=== PATIENT | male | born 1960 | race Caucasian/White ===

== ENCOUNTER 2018-01-13 05:52 | Day surgery (SDC) | payer OTHER ==
[~2018-01-13 05:52] MED LIST: Buffered Lidocaine 0.9% SYRIN* 5 ML/SYR SYRINGE INTRADERM ONE
[2018-01-13] MEDS ORDERED: ceFAZolin 2 GM PREMIX (*) 2 GM/50 ML BAG IVPB ONE (06:07)
[2018-01-13] MEDS ORDERED: Lidocaine 1% INJ* 10 MG/ML 30 ML SDV ONE (07:13)
[2018-01-13] MEDS ORDERED: Midazolam* 1 MG/ML 5 ML VIAL (5 MG) ONE (07:16)
[2018-01-13] MEDS ORDERED: fentaNYL* 50 MCG/ML 2 ML VIAL (100 MCG VIAL) ONE (07:37)
[2018-01-13] MEDS ORDERED: Midazolam* 1 MG/ML 2 ML VIAL (2 MG) ONE (07:49)
[2018-01-13] MEDS ORDERED: Ondansetron INJ* 2 MG/ML VIAL IV PRN (08:15)
[2018-01-13] MEDS ORDERED: oxyCODONE/Acetamin 5/325 MG* TAB PO PRN (08:15)
[2018-01-13] MEDS ORDERED: fentaNYL* 50 MCG/ML 2 ML VIAL (100 MCG VIAL) IV PRN (08:15)
[2018-01-13] MEDS ORDERED: HYDROcodone/ACETAMIN 5-325 MG* 1 TAB PO PRN (08:15)
[2018-01-13] MEDS ORDERED: Naloxone* 0.4 MG/ML 1 ML VIAL IV PRN (08:15)
[2018-01-13 08:40] VITALS: BP 111/71
--- NOTE | 2018-01-13 09:35 | RAD ---
HISTORY: port placed COMPARISONS: May 11, 2016 VIEWS: 1: frontal portable view of the chest at 8:18 AM FINDINGS: LINES AND TUBES: A right-sided chest port is noted from subclavian approach with the tip overlying the superior vena cava. CARDIOMEDIASTINAL SILHOUETTE: The cardiomediastinal silhouette is normal for portable technique. PLEURA: The costophrenic angles are sharp. No pleural abnormalities are noted. There is no appreciable pneumothorax. LUNG PARENCHYMA: The lungs are clear. ABDOMEN: The upper abdomen is clear. There is no subphrenic gas. BONES AND SOFT TISSUES: No bone or soft tissue abnormalities are noted. IMPRESSION: LINES AND TUBES ABOVE. NO ACTIVE CARDIOPULMONARY DISEASE.
--- NOTE | 2018-01-13 11:16 | OP ---
CC: Dr. Shereen Howard * DATE OF OPERATION: 01/13/18 - [facility] DATE OF : 60 SURGEON: Angelito Michaels MD HOME SALES SERVICE PROFESSIONAL: None. ANESTHESIOLOGIST: Jack Case MD ANESTHESIA: LMAC anesthesia. PRE-OP DIAGNOSIS: Carcinoma of the brain. POST-OP DIAGNOSIS: Carcinoma of the brain. OPERATIVE PROCEDURE: Placement of right subclavian 8-Occitan PowerPort. DESCRIPTION OF PROCEDURE: The patient was supine on the operating room table. After adequate intravenous sedation, compression stockings, Parisa Hugger warmer, and intravenous antibiotics, the right neck and chest regions were prepped with antiseptic and draped in a sterile fashion. Local infiltrative anesthesia was administered and approximately 3-cm subclavian incision was created. Inferior pocket was created. Subclavian venipuncture carried out and guidewire passed under fluoroscopic guidance. Catheter passed through the peel-away introducer, measured, and cut at 23 cm, attached to the port which was sutured into the pocket with 2-0 Prolene. The pocket was closed with 3-0 and 5-0 Vicryl followed by Steri-Strips. The port was accessed. There was good blood return, and was flushed with saline solution and heparinized solution, and a Tegaderm dressing was placed. He was brought to Recovery in good condition. No complications. No drains. No pathologic specimens. Sponge and instrument counts correct. Estimated blood loss less than 10 mL. [id number]/CPS #: [id number] MTDD
--- NOTE | 2018-01-14 10:58 | RAD ---
INDICATION: PowerPort placement COMPARISON: None FINDINGS: 1.7 seconds of fluoroscopy were provided for the surgical department. Fluoroscopic spot imaging of the chest were obtained for operative control and show a normal course of the central venous catheter. A follow-up chest x-ray is pending . CPT II Codes: G9500 (fluoro time doc)
== END 2018-01-13 09:00 | disposition home or self-care (01) ==
LOC: OR 05:52
PROVIDERS: ATTEND Surgery
DX: C71.1 Malignant neoplasm of frontal lobe (principal); Z87.891 Personal history of nicotine dependence
CPT/HCPCS: 71045; 76000; C1788; J0690; J1642; J2250; J3010

== ENCOUNTER 2018-12-21 09:36 | Inpatient (IN) | payer OTHER ==
[2018-12-21] MEDS ORDERED: Dexamethasone IV* 4 MG/ML 5 ML VIAL (20 MG) IVPB ONE (10:14)
--- NOTE | 2018-12-21 10:23 | ED ---
Altered Mental Status - HPI Summary HPI Summary: Pt is a 58 y/o M presenting to the ED brought in by EMS for altered mental status. LEVEL 5 CAVEAT: Pt's full hx and physical are unobtainable d/t current altered mental status. Per EMS, the pt has hx of frontal lobe CA, and his family is unable to take care of him. He has slurred speech, R-sided weakness and facial droop, but they think his last known well was 2 weeks ago. They note that he is unable to make his needs known, and that he lives alone. He presents with Adrianna, his sister, who informed us that he had an MRI scheduled for today at 0945, lab work scheduled for today, and chemo tomorrow. She thinks he should be staying in the hospital for further treatment, d/t his hx. She reports that 1 week ago he had very poor gait, and his speech is currently jumbled and slurred. Vital signs while in room: HR 106 bpm, BP 148/109, SaO2 98% on room air with 18 respirations per minute. Home Medications Medication Instructions Recorded Confirmed Type dexAMETHasone [Dexamethasone] 2 mg PO BID 01/10/18 12/21/18 History Amlodipine Besylate [Norvasc] 10 mg PO DAILY 09/24/18 12/21/18 History Omeprazole 20 mg PO DAILY 09/24/18 12/21/18 History Hydrochlorothiazide TAB* 25 mg PO DAILY 12/21/18 12/21/18 History [Hydrodiuril TAB*] Potassium Chlor TAB* [Klor Con ER 40 meq PO DAILY 12/21/18 12/21/18 History TAB*] Rivaroxaban TAB(*) [Xarelto 20 mg] 20 mg PO DAILY 12/21/18 12/21/18 History - History Of Current Complaint Chief Complaint: EDAltMentalStatus Stated Complaint: POSS STROKE PER EMS Hx Obtained From: Family/[employer] - Adrianna, his sister Hx From Patient Unobtainable Due To: Altered Mental Status Last Known Well Date: 2 weeks ago Onset/Duration: Still Present, Gradually Timing: Constant, Lasting Weeks Severity Initially: Moderate Severity Currently: Severe Character: Confusion, Lethargy Aggravating Factor(s): Nothing Alleviating Factor(s): Nothing Associated Signs And Symptoms: Positive: Negative - Allergies/Home Medications Allergies/Adverse Reactions: Allergies Allergy/AdvReac Type Severity Reaction Status Date / Time No Known Allergies Allergy Verified 12/19/18 13:15 Home Medications: Home Medications Hydrochlorothiazide TAB* [Hydrodiuril TAB*] 25 mg PO DAILY 12/21/18 [History Confirmed 12/21/18] Potassium Chlor TAB* [Klor Con ER TAB*] 40 meq PO DAILY 12/21/18 [History Confirmed 12/21/18] Rivaroxaban TAB(*) [Xarelto 20 mg] 20 mg PO DAILY 12/21/18 [History Confirmed ] PMH/Surg Hx/FS Hx/Imm Hx Previously Healthy: No Endocrine/Hematology History: Denies: Hx Diabetes Cardiovascular History: Denies: Hx Hypertension, Hx Pacemaker/ICD Respiratory History: Denies: Hx Asthma History: Denies: Hx Dialysis, Hx Renal Disease Sensory History: Reports: Hx Contacts or Glasses Denies: Hx Hearing Aid Opthamlomology History: Reports: Hx Contacts or Glasses Neurological History: Reports: Other Neuro Impairments/Disorders - glioblastoma Psychiatric History: Denies: Hx Panic Disorder - Cancer History Cancer Type, Location and Year: GLIOBLASTOMA Hx Chemotherapy: Yes - and radiation Hx Radiation Therapy: Yes - Surgical History Surgical History: Yes Surgery Procedure, Year, and Place: 1996 WRIST LEFT- HAD TO "REPAIR VEIN";. -L FONTAL LOBECTOMY AT [place];. POWER PORT. GAMMA KNIFE, [place] Hx Anesthesia Reactions: No Infectious Disease History: No Infectious Disease History: Denies: Traveled Outside the [place] in Last 30 Days - Family History Known Family History: Positive: Other - Father - Stage IV Brain Tumor; Grandfather - Colon Cancer. - Social History Lives: Alone Alcohol Use: None Hx Substance Use: No Substance Use Type: Reports: None Hx Tobacco Use: Yes Smoking Status (MU): Former Smoker Amount Used/How Often: smoked 15-20 years 2ppd Review of Systems - ROS Summary Review of Systems Summary: LEVEL 5 CAVEAT: Pt's full hx and physical are unobtainable d/t current altered mental status. Constitutional: Negative Eyes: Negative Cardiovascular: Negative Respiratory: Negative Gastrointestinal: Negative Positive: Decreased ROM Positive: Weakness, Slurred Speech All Other Systems Reviewed And Are Negative: No Physical Exam - Summary Physical Exam Summary: Appearance: Ill-appearing, no pain distress, well-nourished Skin: Warm, color reflects adequate perfusion, dry Head: Normal Head/Face inspection, atraumatic Eyes: Conjunctiva clear, nonicteric ENT: Normal inspection, pupils midpoint, EOMI Neck: Supple, no nodes, no JVD Respiratory: Lungs clear, normal breath sounds, no respiratory distress Cardio: RRR, No murmur, pulses normal, brisk capillary refill Abdomen: Soft, nontender, nondistended, no masses Bowel sounds: Present Musculoskeletal: Strength Intact/ROM intact, no calf tenderness, no edema. Psychological: Interactive, good eye contact Neuro: Gibberish speech with some understandable phrases, alert, follows most commands, muscle tone normal, no focal deficit, generalized weakness Triage Information Reviewed: Yes Vital Signs On Initial Exam: Initial Vitals Temp Pulse Resp BP Pulse Ox 98.3 F 112 16 148/109 98 12/21/18 09:43 12/21/18 09:43 12/21/18 09:43 12/21/18 09:43 12/21/18 09:43 Vital Signs Reviewed: Yes Completion Of Physical Exam Limited Due To: Altered Mental Status Diagnostics - Vital Signs Vital Signs Temp Pulse Resp BP Pulse Ox 12/21/18 10:03 94 12/21/18 09:53 17 148/109 12/21/18 09:45 14 12/21/18 09:43 98.3 F 112 16 148/109 98 - Laboratory Result Diagrams: 12/21/18 10:12 12/21/18 10:12 Lab Statement: Any lab studies that have been ordered have been reviewed, and results considered in the medical decision making process. - Radiology CXR Radiology Interpretation Completed By: Radiologist Summary of Radiographic Findings: Low lung volumes. No active cardiopulmonary disease. ED provider has reviewed this report. Brain MRI Radiology Interpretation Completed By: Radiologist Summary of Radiographic Findings: 1. THERE HAS BEEN PROGRESSION OF DISEASE WITH A NEW ENHANCING MASS OF THE LEFT MEDIAL TEMPORAL LOBE WITH PROGRESSION OF ENHANCING MASSES OF THE LEFT ANTERIOR TEMPORAL LOBE. THERE IS ASSOCIATED VASOGENIC EDEMA OF THE LEFT CEREBRAL HEMISPHERE EXTENDING INTO THE CORPUS CALLOSUM AND RIGHT FRONTAL LOBE. THERE IS SULCAL EFFACEMENT OF THE LEFT PARIETAL LOBE. 2. THERE ARE SMALL HEMORRHAGIC COMPONENTS TO THE ENHANCING MASSES CONSISTENT WITH THE HISTORY OF GLIOBLASTOMA. ED physician has reviewed this report. - CT Brain CT CT Interpretation Completed By: Radiologist Summary of CT Findings: THERE IS HYPOATTENUATION OF THE LEFT CEREBRAL HEMISPHERIC WHITE MATTER. WHEN COMPARED TO PREVIOUS MRI, THIS LIKELY REPRESENTS A COMBINATION OF TREATMENT EFFECT AND VASOGENIC EDEMA. THERE HAS BEEN NO SIGNIFICANT CHANGE ACCOUNTING FOR DIFFERENCES IN TECHNIQUE. THERE IS NO SHIFT. ED physician has reviewed this report. - EKG 1024 Cardiac Rate: Tachycardia - 103bpm EKG Rhythm: Sinus Tachycardia ST Segment: Non-Specific Ectopy: None Summary of EKG Findings: An EKG at 1024 shows sinus tachycardia at 103bpm nml AV /IV CT, nml QTc, and L axis deviation (-23) and LVH. No acute changes. No prior to compare. ED MD has reviewed and interpreted this EKG. Re-Evaluation - Re-Evaluation First Eval Re-Evaluation Time: 12:15 Change: Unchanged Comment: Sister and pt advised of progressive disease on MRI, and that Dr. Howard advises admission. They are in agreement. Pt is a DNR. Sister, Adrianna is HCP. Altered Mental Statu Course/Dx - Course Course Of Treatment: Pt is a 58 y/o M presenting to the ED brought in by EMS for altered mental status. Per EMS, the pt has hx of frontal lobe CA, and his family is unable to take care of him. He has slurred speech, R-sided weakness and facial droop, but they think his last known well was 2 weeks ago. They note that he is unable to make his needs known, and that he lives alone. He presents with Adrianna, his sister, who informed us that he had an MRI scheduled for today at 0945, lab work scheduled for today, and chemo tomorrow. She thinks he should be staying in the hospital for further treatment, d/t his hx. She reports that 1 week ago he had very poor gait, and his speech is currently jumbled and slurred. Vital signs while in room: HR 106 bpm, BP 148/109, SaO2 98 % on room air with 18 respirations per minute. On exam, the pt has gibberish speaking with some understandable phrases, but the rest of his exam is normal. [address] Honeycutt to inform him of the patients condition. [address] Howard who recommended that the patient be given 10mg of Dexamethasone and to wait for disposition until the MRI is done. CXR shows: Low lung volumes. No active cardiopulmonary disease. ED provider has reviewed this report. Brain CT shows: THERE IS HYPOATTENUATION OF THE LEFT CEREBRAL HEMISPHERIC WHITE MATTER. WHEN COMPARED TO PREVIOUS MRI, THIS LIKELY REPRESENTS A COMBINATION OF TREATMENT EFFECT AND VASOGENIC EDEMA. THERE HAS BEEN NO SIGNIFICANT CHANGE ACCOUNTING FOR DIFFERENCES IN TECHNIQUE. THERE IS NO SHIFT. An EKG at 1024 shows sinus tachycardia at 103bpm nml AV/IV CT, nml QTc, and L axis deviation (-23) and LVH. No acute changes. No prior to compare. ED MD has reviewed and interpreted this EKG. Brain MRI shows: 1. THERE HAS BEEN PROGRESSION OF DISEASE WITH A NEW ENHANCING MASS OF THE LEFT MEDIAL TEMPORAL LOBE WITH PROGRESSION OF ENHANCING MASSES OF THE LEFT ANTERIOR TEMPORAL LOBE. THERE IS ASSOCIATED VASOGENIC EDEMA OF THE LEFT CEREBRAL HEMISPHERE EXTENDING INTO THE CORPUS CALLOSUM AND RIGHT FRONTAL LOBE. THERE IS SULCAL EFFACEMENT OF THE LEFT PARIETAL LOBE. 2. THERE ARE SMALL HEMORRHAGIC COMPONENTS TO THE ENHANCING MASSES CONSISTENT WITH THE HISTORY OF GLIOBLASTOMA. 1252 - I spoke with Dr. Howard about the pt's MRI results who recommends admission to [facility]. His dx will include glioblatoma multiforme, cerebral edema, expressive aphasia, altered mental status - Diagnoses Differential Diagnosis/HQI/PQRI: CVA, Intracranial Bleed, Metabolic Disorder, Other - metastatic cancer, cerebral edema Provider Diagnoses: Glioblastoma multiforme of frontal lobe, Altered mental status, Expressive aphasia - Provider Notifications Discussed Care Of Patient With: Shereen Howadr Time Discussed With Above Provider: 12:52 Discharge - Sign-Out/Discharge Documenting (check all that apply): Patient Departure - ADMIT - Discharge Plan Condition: Stable Disposition: ADMITTED TO [facility] - Billing Disposition and Condition Condition: STABLE Disposition: Admitted to [facility] - Attestation Statements Document Initiated by Bernadetteibe: Yes Documenting Scribe: Qiana Soria Provider For Whom Beth is Documenting (Include Credential): Dr. Ericka Ribera MD. Scribe Attestation: Qiana Nolen scribed for Dr. Ericka Ribera MD. on 12/22/18 at 1535. Scribe Documentation Reviewed: Yes Provider Attestation: The documentation as recorded by the Qiana acevedo accurately reflects the service I personally performed and the decisions made by , Dr. Ericka Ribera MD. Status of Scribe Document: Viewed Consult Consult: [address] Honeycutt to inform him of the patients condition. [address] Howard who recommended that the patient be given 10mg of Dexamethasone, and to wait for disposition until the MRI is done. 1252 - I discussed the results of the MRI with Dr. Howard who recommended admission to [facility].
[2018-12-21 10:26] LABS: ABS Lymphocytes 0.7 10^3/ul (1.0-4.8); ABS Neutrophils 7.4 10^3/ul (1.5-7.7); Eosinophil % 0.3 %; Hematocrit 49 % (42-52); Hemoglobin 16.6 g/dL (14.0-18.0); Lymphocyte % 7.9 %; Mean Corpuscular HGB Conc 34 g/dL (31-36); Mean Corpuscular Hemoglobin 34 pg (27-31); Mean Corpuscular Volume 98 fL (80-94); Mean Platelet Volume 6.9 fL (7.4-10.4); Nucleated Red Blood Cells % 0.1; Platelet Count 187 10^3/uL (150-450); Red Blood Count 4.94 10^6 /uL (4.18-5.48); Red Cell Distribution Width 17 % (10-15); White Blood Count 9.2 10^3/uL (3.5-10.8)
[2018-12-21 10:33] LABS: INR 1.03 (0.82-1.09)
[2018-12-21 10:42] LABS: ALT 36 U/L (7-52); AST 35 U/L (13-39); Albumin 3.8 g/dL (3.2-5.2); Albumin/Globulin Ratio 1.3 (1-3); Alkaline Phosphatase 55 U/L (34-104); Anion Gap 7 mmol/L (2-11); BUN/Creatinine Ratio 22.9 (8-20); Blood Urea Nitrogen 19 mg/dL (6-24); CO2 Carbon Dioxide 30 mmol/L (22-32); Calcium 9.1 mg/dL (8.6-10.3); Chloride 102 mmol/L (101-111); Creatine Kinase 179 U/L (10-223); EGFR African American 115.1 (>60); EGFR Non-African American 95.2 (>60); Globulin 2.9 g/dL (2-4); Glucose 118 mg/dL (70-100); Magnesium 2.4 mg/dL (1.9-2.7); Sodium 139 mmol/L (135-145); Total Protein 6.7 g/dL (6.4-8.9)
[2018-12-21 11:17] LABS: Acetaminophen < 15 mcg/mL; Alcohol < 10 mg/dL (<10); Salicylate < 2.50 mg/dL (<30)
[2018-12-21] MEDS ORDERED: Gadoteridol* (CONTRAST) 279.3 MG/ML 10 ML IV ONE (11:53)
[2018-12-21] MEDS ORDERED: Morphine 4 MG/ML VIAL (1 ml) 4 MG/ML VIAL IV PRN (13:27)
[2018-12-21] MEDS ORDERED: Morphine ORAL CONCENTRATE* 5 MG/0.25 ML ORAL.SYRIN PO PRN (13:31)
[2018-12-21] MEDS ORDERED: LORazepam INJ* 2 MG/ML 1 ML VIAL IV PUSH PRN (13:32)
[2018-12-21] MEDS ORDERED: Lorazepam PYXIS KEY PRN (13:32)
[2018-12-21 16:33] VITALS: BP 143/88
[2018-12-21] MEDS: Dexamethasone IV* 4 MG/ML 1 ML (4 MG) IV SLOW PU SCH (17:14)
--- NOTE | 2018-12-21 19:48 | HP ---
CC: Dr. Franz * ADMISSION HISTORY AND PHYSICAL: DATE OF ADMISSION: 12/21/18 PRIMARY CARE PROVIDER: Dr. Franz. PRIMARY ONCOLOGIST AND ATTENDING PHYSICIAN: Dr. Shereen Howard.* (DICTATED BY ONIEL OKEEFE) ADMITTING PROVIDER: ONIEL Okeefe CHIEF COMPLAINT: Altered mental status. HISTORY OF PRESENT ILLNESS: This is an extremely pleasant 58-year-old gentleman with known glioblastoma multiforme, under the care of Dr. Howard, who has recently received compassionate use nivolumab with stable disease noted after 4 cycles, but over the last several weeks he has had progressive expressive aphasia and some intermittent confusion noted by his sister. He was seen in the clinic with these concerns earlier this week which was concerning for potential progressive disease and an urgent MRI was scheduled for tomorrow prior to his next chemotherapy infusion. His sister noted that his speech was much worse and he was quite confused and unable to appropriately care for himself at home and subsequently called 911, and he was brought to the emergency department. PAST MEDICAL HISTORY: 1. GBM. 2. Hypertension. PAST SURGICAL HISTORY: 1. Resection of left frontal lobe mass in 2016. 2. Surgical repair of an arm fracture. HOME MEDICATIONS: 1. Amlodipine 10 mg p.o. daily. 2. Dexamethasone 2 mg p.o. twice daily. 3. Hydrochlorothiazide 25 mg p.o. daily. 4. Omeprazole 20 mg p.o. daily. 5. Potassium chloride 40 mEq p.o. daily. 6. Xarelto 20 mg p.o. daily. FAMILY HISTORY: The patient's father had brain cancer and grandfather had colon cancer. SOCIAL HISTORY: The patient lives at home alone. His sister and [id number] are both healthcare proxies. He has a [id number] smoking history, quit greater than 20 years ago, and occasionally consumes alcohol. REVIEW OF SYSTEMS: Unable to obtain full review of systems as the patient is having difficulty communicating and appears confused. PHYSICAL EXAMINATION GENERAL: This is a 58-year-old gentleman who is resting with eyes closed, minimal response to verbal stimulation but eventually opens his eyes while talking to his sister. Unable to assess orientation. INITIAL VITALS: Temperature 98.3 degrees Fahrenheit, pulse is 112 beats per minute, respiratory rate 16, oxygen saturation 98% on room air, blood pressure 148/109. HEENT: Head is normocephalic, atraumatic. Mucous membranes are pink and moist. RESPIRATORY: Lungs are clear to auscultation without wheezes, crackles, or rhonchi. CARDIOVASCULAR: Heart has regular rate and rhythm without murmurs, rubs, or gallops. ABDOMEN: Soft and nontender to palpation. EXTREMITIES: Show 1+ edema. NEUROLOGIC: Unable to do a full neuro exam. The patient is intermittently alert, but unable to discern the words that he is trying to speak. He does not appear to be in any pain or have any focal weakness. LABORATORY EVALUATION: CBC shows white blood cell count of 9200, hemoglobin of 16.6, platelets of 187,000. INR 1.03. Comprehensive metabolic panel: Sodium of 139, potassium is 4.0, BUN 19, creatinine is 0.83. Total bilirubin is 1.1, transaminases within normal limits. IMAGIN. CT brain shows hypoattenuation of the left cerebral hemispheric white matter. When compared to prior MRI, likely represents treatment effect and vasogenic edema, no significant change noted. 2. Chest x-ray shows low lung volumes, no acute disease. 3. MRI brain shows progression of disease with new enhancing mass in the left medial temporal lobe with progression of enhancing mass in the left anterior temporal lobe and there is associated vasogenic edema of the left cerebral hemisphere extending to the corpus callosum in right frontal lobe. There is sulcal effacement of the left parietal lobe. ASSESSMENT AND PLAN: This is a 58-year-old gentleman with glioblastoma multiforme, who unfortunately has significant progressive disease on third-line therapy. Discussed with the patient and his sister earlier this week that in the setting of progressive disease, there unfortunately are no additional treatment options, so hospice would be recommended. At that time, his sister thought that she could care for him in his home but she no longer feels that she is physically able to do this. The patient will subsequently be admitted to the hospital with plans for comfort care measures only and work on placement for hospice in institutional setting, ideally the hospice residence. 1. Progressive glioblastoma multiforme - admission for comfort care measures. We will continue dexamethasone. The patient does not appear to be in any pain, but p.r.n. morphine and Ativan will be available for pain and agitation. Additional monitoring measures including vital signs and labs will not be continued during his hospitalization. The remainder of his home medications will not be continued at this time. 2. Code status - the patient is DNR/DNI, comfort measures only confirmed with his sister, who is his healthcare proxy today. 3. Healthcare proxy is his sister and [id number] listed as co-primary healthcare proxies. DISPOSITION: The patient is being admitted to the hospital with comfort care measures only with anticipated discharge with hospice services to either the residence or local nursing facility. ONIEL OKEEFE [id number]/CPS #: [id number] VAMSI
[2018-12-22] MEDS: Dexamethasone IV* 4 MG/ML 1 ML (4 MG) IV SLOW PU SCH ×3 (02:22→18:18)
--- NOTE | 2018-12-22 13:01 | PN ---
Progress Note - Progress Note Date of Service: 12/22/18 SOAP: Subjective: []Extended family either in room or waiting room. Pt. seen with sister, Leslie , and [id number]. Klever is in no acute distress though can not communicate clearly much of the time. Leslie is aware of his progressive disease and in agreement with transition to hospice. Medications: Dexamethasone Sodium Phosphate (Decadron Iv*) 4 mg IV SLOW PU Q8H SULAIMAN Last Admin: 12/22/18 10:53 Dose: 4 mg Heparin Sodium (Porcine) (Heparin Flush Port (Ivad)) 5 ml FLUSH DAILY SULAIMAN; Protocol Last Admin: 12/22/18 10:53 Dose: 5 ml Lorazepam (Ativan Inj*) 1 mg IV PUSH Q4H PRN PRN Reason: AGITATION Miscellaneous (Ativan Pyxis Tilley) 1 ea N/A .ATIVAN IV TILLEY PRN PRN Reason: PYXIS TILLEY Morphine Sulfate (Morphine 4 Mg/Ml Vial (1 Ml)) 4 mg IV Q2H PRN PRN Reason: PAIN - MILD Morphine Sulfate (Morphine Oral Concentrate*) 5 mg PO Q2H PRN PRN Reason: PAIN Objective: [] Vital Signs Temp Pulse Resp BP Pulse Ox 98 F 107 18 143/88 98 12/21/18 15:25 12/21/18 15:25 12/21/18 19:34 12/21/18 15:25 12/21/18 15:25 Alert and answering questions however intermittent garbled speech and delayed speech pattern - orientation not assessed Resp. even and non-labored in no acute distress Limited assessment due to palliative nature of visit Assessment: []58 yo male with progressive GBM admitted due to alerted mental status and inability to care for self at home. Plan: []Transition to hospice, recommend residence due to expected rapid decline and high potential need for interventions (such as seizures)
--- NOTE | 2018-12-22 13:35 | CONSULT ---
Palliative / Hospice Consult Ordering Provider: Kenyon Haley - PCP-Maria M - Subjective Code Status: DNR Advance Directives Location: In Chart MOLST Part A Completed: Yes - on chart MOLST Part E Completed:: Yes - on chart - History or Present Illness History or Present Illness: 58 yo male with glioblastoma presents to ER with aphasia and confusion. PMH is significant for HTN and resection of L frontal lobectomy 2016. Pt is used to work at [employer] and is a , ex tob user/ occ etoh. Studies showed ekg-sinus tach, Brain CT no change from previous study, CXR neg, brain MRI-progression of disease, H/H 16.6/49, BUn/Cr 19/.83 egfr 95.2, tprot 6.7, alb 3.8. All history is from sister Leslie and old medical records, pt is unable to participate. Pt was admitted with altered mental status. Pt has completed temodar /RT in 08/13/16 and maintence with temodar 09/14/17 and has been to [place] for gamma knife. Lab Values: Laboratory Last Values WBC 9.2 10^3/uL (3.5-10.8) 12/21/18 10:12 RBC 4.94 10^6 /uL (4.18-5.48) 12/21/18 10:12 Hgb 16.6 g/dL (14.0-18.0) 12/21/18 10:12 Hct 49 % (42-52) 12/21/18 10:12 MCV 98 fL (80-94) H 12/21/18 10:12 MCH 34 pg (27-31) H 12/21/18 10:12 MCHC 34 g/dL (31-36) 12/21/18 10:12 RDW 17 % (10-15) H 12/21/18 10:12 Plt Count 187 10^3/uL (150-450) 12/21/18 10:12 MPV 6.9 fL (7.4-10.4) L 12/21/18 10:12 Neut % (Auto) 80.7 % 12/21/18 10:12 Lymph % (Auto) 7.9 % 12/21/18 10:12 [place] % (Auto) 10.6 % 12/21/18 10:12 Eos % (Auto) 0.3 % 12/21/18 10:12 Baso % (Auto) 0.5 % 12/21/18 10:12 Absolute Neuts (auto) 7.4 10^3/ul (1.5-7.7) 12/21/18 10:12 Absolute Lymphs (auto) 0.7 10^3/ul (1.0-4.8) L 12/21/18 10:12 Absolute Monos (auto) 1.0 10^3/ul (0-0.8) H 12/21/18 10:12 Absolute Eos (auto) 0.0 10^3/ul (0-0.6) 12/21/18 10:12 Absolute Basos (auto) 0.0 10^3/ul (0-0.2) 12/21/18 10:12 Absolute Nucleated RBC 0.0 10^3/ul 12/21/18 10:12 Nucleated RBC % 0.1 12/21/18 10:12 INR (Anticoag Therapy) 1.03 (0.82-1.09) 12/21/18 10:12 Sodium 139 mmol/L (135-145) 12/21/18 10:12 Potassium 4.0 mmol/L (3.5-5.0) 12/21/18 10:12 Chloride 102 mmol/L (101-111) 12/21/18 10:12 Carbon Dioxide 30 mmol/L (22-32) 12/21/18 10:12 Anion Gap 7 mmol/L (2-11) 12/21/18 10:12 BUN 19 mg/dL (6-24) 12/21/18 10:12 Creatinine 0.83 mg/dL (0.67-1.17) 12/21/18 10:12 Est GFR ( Amer) 115.1 (>60) 12/21/18 10:12 Est GFR (Non-Af Amer) 95.2 (>60) 12/21/18 10:12 BUN/Creatinine Ratio 22.9 (8-20) H 12/21/18 10:12 Glucose 118 mg/dL (70-100) H 12/21/18 10:12 Lactic Acid 1.7 mmol/L (0.5-2.0) 12/21/18 10:12 Calcium 9.1 mg/dL (8.6-10.3) 12/21/18 10:12 Magnesium 2.4 mg/dL (1.9-2.7) 12/21/18 10:12 Total Bilirubin 1.10 mg/dL (0.2-1.0) H 12/21/18 10:12 AST 35 U/L (13-39) 12/21/18 10:12 ALT 36 U/L (7-52) 12/21/18 10:12 Alkaline Phosphatase 55 U/L (34-104) 12/21/18 10:12 Ammonia 37 mcmol/L (16-53) 12/21/18 10:12 Total Creatine Kinase 179 U/L (10-223) 12/21/18 10:12 Troponin I 0.00 ng/mL (<0.04) 12/21/18 10:12 Total Protein 6.7 g/dL (6.4-8.9) 12/21/18 10:12 Albumin 3.8 g/dL (3.2-5.2) 12/21/18 10:12 Globulin 2.9 g/dL (2-4) 12/21/18 10:12 Albumin/Globulin Ratio 1.3 (1-3) 12/21/18 10:12 Salicylates < 2.50 mg/dL (<30) 12/21/18 10:12 Acetaminophen < 15 mcg/mL 12/21/18 10:12 Serum Alcohol < 10 mg/dL (<10) 12/21/18 10:12 - Objective Active Medications: Dexamethasone Sodium Phosphate (Decadron Iv*) 4 mg IV SLOW PU Q8H SULAIMAN Last Admin: 12/22/18 10:53 Dose: 4 mg Heparin Sodium (Porcine) (Heparin Flush Port (Ivad)) 5 ml FLUSH DAILY SULAIMAN; Protocol Last Admin: 12/22/18 10:53 Dose: 5 ml Lorazepam (Ativan Inj*) 1 mg IV PUSH Q4H PRN PRN Reason: AGITATION Miscellaneous (Ativan Pyxis Tilley) 1 ea N/A .ATIVAN IV TILLEY PRN PRN Reason: PYXIS TILLEY Morphine Sulfate (Morphine 4 Mg/Ml Vial (1 Ml)) 4 mg IV Q2H PRN PRN Reason: PAIN - MILD Morphine Sulfate (Morphine Oral Concentrate*) 5 mg PO Q2H PRN PRN Reason: PAIN Vital Signs: Vital Signs: Temp Pulse Resp BP Pulse Ox 98 F 107 18 143/88 98 12/21/18 15:25 12/21/18 15:25 12/22/18 08:00 12/21/18 15:25 12/21/18 15:25 Patient Weight: Weight 100.834 kg Intake and Output: Intake & Output 12/20/18 12/21/18 12/22/18 12/23/18 06:59 06:59 06:59 06:59 Intake Total 350 280 Output Total 300 Balance 350 -20 Weight 100.834 kg Intake: Oral 350 280 Output: Urine 300 Other: Estimated Void Large Large # Bowel Movements 0 # Voids 1 1 ADLs: Meal Record Start: 12/21/18 14: 37 Freq: DAILY@0900,1400,1800 Status: Active Protocol: Created 12/21/18 14:37 System (Rec: 12/21/18 14:37 System [id number]) Document 12/21/18 18:00 [id number] (Rec: 12/21/18 18:56 [id number] MED-C09) Document 12/22/18 09:00 [id number] (Rec: 12/22/18 09:17 [id number] MED-C05) Document 12/22/18 13:22 [id number] (Rec: 12/22/18 13:22 [id number] MED-C05) Intake and Output Start: 12/21/18 09: 53 Freq: Status: Active Protocol: Created 12/21/18 09:53 System (Rec: 12/21/18 09:53 System [id number]) Intake and Output Start: 12/21/18 14: 37 Freq: DAILY@0600,1400,2200 Status: Active Protocol: Created 12/21/18 14:37 System (Rec: 12/21/18 14:37 System [email or web address]) Document 12/21/18 22:00 [id number] (Rec: 12/21/18 23:45 [id number] MED-C07) Document 12/22/18 06:00 [id number] (Rec: 12/22/18 06:26 [id number] MED-C07) Ears/Nose/Mouth/Throat: Clear Oropharnyx Neck: NL Appearance and Movements; NL JVP Cardiovascular: RRR Respiratory: Clear to Auscultation Extremities: No Edema - Assessment Assessment: 58 yo male with GBM progression eligible for hospice - Plan Consult Plan (MU): Hospice Plan: Spoke with sister Leslie who is HCP and aunts. They are aware that the tumor has progressed and there is no more treatments that will stop the growth of the tumor and were told he has days to weeks to live. They have decided to proceed with hospice and would like a bed at the residence. A referral was sent via case management. If no bed is available they will seek a SNF with a hospice consult. Information/benefits of hospice were discussed and a brochure given. Community Development Specialist has been to visit. Family is familiar with hospice aunt has used them for her 's and her daughter's. KPS 50% PPS 40% - Time On Unit Date of Evaluation: 12/22/18 Hospice Consult Time in: 12:30 Hospice Consult Time Out: 13:30 Hospice Consult Time Total: 60 > 50% of Time Spend In Counseling or Coordinating Care: Yes
--- NOTE | 2018-12-22 18:05 | DS ---
- Discharge Summary Admission Date: 12/21/18 Discharge Date: 12/23/18 Discharge Diagnosis: 1. End stage GBM: transition to comfort measures only, hospice residence Discharge Medications: Medication Instructions Recorded Confirmed Type Omeprazole 20 mg PO DAILY 09/24/18 12/21/18 History LORazepam TAB(*) [Ativan 0.5 MG 0.5 mg PO Q4H PRN #30 tab MDD 6 12/22/18 Rx TAB (*)] doses Morphine ORAL CONCENTRATE* 5 mg PO Q2H PRN #30 ml MDD 12 doses 12/22/18 Rx dexAMETHasone [Dexamethasone] 4 mg PO TID #30 tablet 12/22/18 Rx Disposition: hospice residence Condition: fair Activity: fall precautions, OOB with assist Diet: comfort, as tolerated Hospital Course: Please see admission note for full H&P. Briefly, Mr. Wyman is well known to our service due to his unfortunate diagnosis of a GBM, most recently treated with Nivolumab. He had increasing word finding difficulty and an urgent MRI was ordered on 12/16, however he presented to the hospital via EMS on 12/21 due to marked progression of symptoms and decline in ability to care for himself. In the ER an MRI of the head revealed marked progression of his disease. He was admitted for comfort measures due to his sister's inability to care for him safely. He was started on IV dexamethasone. He has been stable since admission with intermittent aphasia, though continues to appear comfortable. His sister and healthcare proxy agreed to DNR with comfort measures only and he will be discharged to the hospice residence on 12/23/18. His prognosis is limited, likely measured in days to weeks at most. All questions were answered. Family has been by his side since admission.
[2018-12-23] MEDS: Dexamethasone IV* 4 MG/ML 1 ML (4 MG) IV SLOW PU SCH ×2 (02:00→07:49)
== END 2018-12-23 08:40 | disposition hospice, inpatient (51) | DRG 41 ==
LOC: ED 09:36 → MED 13:27
PROVIDERS: ADMIT Internal Medicine Hematology & Oncology; ATTEND Internal Medicine Hematology & Oncology
DX: C71.9 Malignant neoplasm of brain, unspecified (principal); Z51.5 Encounter for palliative care; Z66 Do not resuscitate; I10 Essential (primary) hypertension; Z80.8 Family history of malignant neoplasm of other organs or systems; Z92.21 Personal history of antineoplastic chemotherapy; Z80.0 Family history of malignant neoplasm of digestive organs; Z87.891 Personal history of nicotine dependence; Z72.89 Other problems related to lifestyle; Z92.3 Personal history of irradiation
CPT/HCPCS: 36415; 70450; 70553; 71045; 80053; 80320; 80329; 82140; 82550; 83605; 83735; 84484; 85025; 85610; 93005; 99222; 99239; 99281; A9579; G0480; J1100; J1642